=== PATIENT | male | born 1975 | race African-American/Black ===

== ENCOUNTER 2018-01-19 17:51 | Emergency (ER) | payer OTHER, SELFPAY ==
[2018-01-19] MEDS ORDERED: Lidocaine 1% PF 5 ML VIAL ONE ×2 (18:57→18:58)
--- NOTE | 2018-01-19 19:04 | RAD ---
LEFT HAND THREE VIEWS: History: Left hand pain. FINDINGS/IMPRESSION: No acute fracture or dislocation is identified. POS: [facility]
[2018-01-19] MEDS ORDERED: Bacitracin Zinc 1 Packet ONE (19:41)
== END 2018-01-19 19:41 | disposition home or self-care (01) ==
LOC: ERS 17:51
DX: S61.412A Laceration without foreign body of left hand, initial encounter (principal); J45.909 Unspecified asthma, uncomplicated; W26.8XXA Contact with other sharp object(s), not elsewhere classified, initial encounter
CPT/HCPCS: 12002; J2001

== ENCOUNTER 2018-01-27 08:57 | Emergency (ER) | payer SELFPAY | END 2018-01-27 09:52 | disposition home or self-care (01) | LOC: ERS 08:57 | DX: Z48.02 Encounter for removal of sutures (principal); J45.909 Unspecified asthma, uncomplicated; Z79.899 Other long term (current) drug therapy ==

== ENCOUNTER 2020-10-12 06:05 | Emergency (ER) | payer SELFPAY ==
[2020-10-12 13:44] LABS: SARS-CoV-2 MS2 Positive; SARS-CoV-2 N Gene Positive; SARS-CoV-2 S Gene Positive; SARS-CoV-2 by NAA DETECTED (NotDetected); SARS-CoV-2 orf1ab Positive
== END 2020-10-12 06:55 | disposition home or self-care (01) ==
LOC: ERS 06:05
DX: U07.1 COVID-19 (principal); J45.909 Unspecified asthma, uncomplicated
CPT/HCPCS: 87635; 99283; U0003

== ENCOUNTER 2023-11-08 12:12 | Emergency (ER) | payer SELFPAY ==
[2023-11-08] MEDS ORDERED: Lidocaine 1% PF 5 ML VIAL ONE (13:08)
== END 2023-11-08 14:49 | disposition home or self-care (01) ==
LOC: ERS 12:12
DX: S61.012A Laceration without foreign body of left thumb without damage to nail, initial encounter (principal); W31.89XA Contact with other specified machinery, initial encounter
CPT/HCPCS: 12001